=== PATIENT | male | born 1990 | race Asian ===

== ENCOUNTER 2016-12-18 15:26 | Emergency (ER) | payer OTHER ==
[~2016-12-18] VITALS: Ht 167.6 cm; Wt 80.3 kg
[2016-12-18 17:50] LABS: PLATELET COUNT 156 K/uL (142-355)
[2016-12-18 19:06] VITALS: BP 125/86; TEMP 98.3
== END 2016-12-18 19:18 | disposition home or self-care (01) ==
LOC: ED 15:26
DX: K40.90 Unilateral inguinal hernia, without obstruction or gangrene, not specified as recurrent (principal)
CPT/HCPCS: 81000; 85027; 99283

== ENCOUNTER 2017-04-13 20:38 | Emergency (ER) | payer OTHER ==
[~2017-04-13] VITALS: Ht 172.7 cm; Wt 83.9 kg
[2017-04-13 20:51] VITALS: TEMP 98.6
[2017-04-13 21:08] VITALS: BP 113/72
== END 2017-04-13 21:09 | disposition home or self-care (01) ==
LOC: ED 20:38
DX: H10.9 Unspecified conjunctivitis (principal)
CPT/HCPCS: 99281

== ENCOUNTER 2018-11-13 18:38 | Emergency (ER) | payer OTHER ==
[~2018-11-13] VITALS: Ht 175.3 cm; Wt 83.9 kg
[2018-11-13 22:01] VITALS: BP 118/83; TEMP 98.3
== END 2018-11-13 22:13 ==
LOC: ED 18:38
DX: K59.00 Constipation, unspecified (principal)
CPT/HCPCS: 99281

== ENCOUNTER 2019-01-18 07:38 | Emergency (ER) | payer OTHER ==
[~2019-01-18] VITALS: Ht 177.8 cm; Wt 88.5 kg
[2019-01-18 07:44] VITALS: BP 122/76; TEMP 98.1
== END 2019-01-18 09:03 | disposition home or self-care (01) ==
LOC: ED 07:38
DX: S39.012A Strain of muscle, fascia and tendon of lower back, initial encounter (principal); Y93.89 Activity, other specified; Y92.89 Other specified places as the place of occurrence of the external cause; Y99.0 Civilian activity done for income or pay; X50.1XXA Overexertion from prolonged static or awkward postures, initial encounter
CPT/HCPCS: 96372; 99283; J1885

== ENCOUNTER 2021-06-12 07:56 | Emergency (ER) | payer OTHER ==
[~2021-06-12] VITALS: Ht 177.8 cm; Wt 88.5 kg
[2021-06-12 09:30] VITALS: BP 120/78; TEMP 98.3
== END 2021-06-12 09:30 | disposition home or self-care (01) ==
LOC: ED 07:56
DX: J06.9 Acute upper respiratory infection, unspecified (principal); B34.9 Viral infection, unspecified; R05.8 Other specified cough; J02.9 Acute pharyngitis, unspecified; Z20.822 Contact with and (suspected) exposure to COVID-19
CPT/HCPCS: 87502; 87635; 87651; 99283; U0003